=== PATIENT | female | born 1990 | race Caucasian/White ===

== ENCOUNTER → 2020-09-15 09:17 | Outpatient (BNVA) | payer SELFPAY | PROVIDERS: Visit Provider Family Medicine | DX: Z13.6 Encounter for screening for cardiovascular disorders (principal) | CPT/HCPCS: 80061; 82947; 83036 ==

== ENCOUNTER → 2020-10-03 13:33 | Outpatient (BNVA) | payer OTHER, SELFPAY | PROVIDERS: Visit Provider Obstetrics & Gynecology Reproductive Endocrinology | DX: Z01.83 Encounter for blood typing (principal); Z13.21 Encounter for screening for nutritional disorder; N92.6 Irregular menstruation, unspecified; Z11.9 Encounter for screening for infectious and parasitic diseases, unspecified | CPT/HCPCS: 84146; 84439; 84443; 85025; 86592; 86704; 86900; 87340; 87806 ==

== ENCOUNTER → 2021-02-19 13:17 | Outpatient (BNVA) | payer OTHER, SELFPAY | PROVIDERS: Visit Provider Family Medicine | DX: Z20.822 Contact with and (suspected) exposure to COVID-19 (principal) | CPT/HCPCS: 87635 ==

== ENCOUNTER → 2021-02-27 10:42 | Outpatient (BNVA) | payer OTHER, SELFPAY | PROVIDERS: Visit Provider Obstetrics & Gynecology Reproductive Endocrinology | DX: N97.9 Female infertility, unspecified (principal); Z13.29 Encounter for screening for other suspected endocrine disorder | CPT/HCPCS: 82306; 84146; 84439; 84443; 85025 ==

== ENCOUNTER 2021-03-14 09:12 | Outpatient (CLI) | payer OTHER, SELFPAY ==
--- NOTE | 2021-03-14 09:31 | US_ITS ---
WS: [id number] ULTRASOUND PELVIS TECHNIQUE: Transvaginal. CLINICAL INFORMATION: THERAPEUTIC DRUG LEVEL : No. COMPARISON: None. FINDINGS: Cervix long and closed. Uterus Orientation: Anteverted. Size: 5.51 x 3.05 x 4.31 cm Masses: None. Cervix: Normal. Endometrium: Normal. Endometrium thickness: 0.32 cm. Adnexa: Large lobulated left ovarian cyst measuring 5.4 x 2.4 x 3.1 cm with single septation Right ovary size: 3.39 x 1.79 x 3.42 cm. RIGHT OVARY 6 FOLLICLES VISUALIZED AND MEASURED FOLLICLE 1 0.46 x 0.39 x 0.39 cm; VOL 0.0 cm3 FOLLICLE 2 0.80 x 0.68 x 0.68 cm; VOL 0.2 cm3 FOLLICLE 3 0.38 x 0.38 x 0.23 cm; VOL 0.0 cm3 FOLLICLE 4 0.26 x 0.42 x 0.28 cm; VOL 0.0 cm3 FOLLICLE 5 0.33 x 0.25 x 0.38 cm; VOL 0.0 cm3 FOLLICLE 6 0.45 x 0.28 x 0.42 cm; VOL 0.0 cm3 Left ovary size: 2.66 x 2.85 x 2.21 cm. LEFT OVARY 8 FOLLICLES VISUALIZED AND MEASURED. FOLLICLE 1 0.50 x 0.47 x 0.37 cm VOL 0.0 cm3 FOLLICLE 2 0.29 x 0.29 x 0.23 cm VOL 0.0 cm3 FOLLICLE 3 0.30 x 0.35 x 0.26 cm VOL 0.0 cm3 FOLLICLE 4 0.21 x 0.22 x 0.17 cm VOL 0.0 cm3 FOLLICLE 5 0.50 x 0.35 x 0.55 cm VOL 0.1 cm3 FOLLICLE 6 0.53 x 0.53 x 0.38 cm VOL 0.1 cm3 FOLLICLE 7 0.48 x 0.48 x 0.61 cm VOL 0.1 cm3 FOLLICLE 8 0.48 x 0.48 x 0.31 cm VOL 0.0 cm3 Free fluid: None. Other findings: None. US/US transvaginal [id number] IMPRESSION: 1. Normal uterus and endometrium. Endometrium measures 3.2 mm. 2. Large lobulated left ovarian cyst measuring 5.4 x 2.4 x 3.1 cm 3. Largest right ovarian follicle measures 8.0 x 6.8 x 6.8 mm 4. Largest left ovarian follicle measures 5.3 x 5.3 x 3.8 mm
[2021-03-14 11:01] LABS: Estradiol 6.7 pg/mL
== END 2021-03-14 09:13 | disposition home or self-care (01) ==
PROVIDERS: PCP Nurse Practitioner Family; Visit Provider Obstetrics & Gynecology Reproductive Endocrinology
DX: Z51.81 Encounter for therapeutic drug level monitoring (principal); N83.202 Unspecified ovarian cyst, left side; N83.01 Follicular cyst of right ovary; N83.02 Follicular cyst of left ovary
CPT/HCPCS: 36415; 76830; 82670; 84144; 84702

== ENCOUNTER 2021-03-29 07:16 | Outpatient (CLI) | payer OTHER, SELFPAY ==
[2021-03-29 08:19] LABS: Estradiol 617.5 pg/mL
== END 2021-03-29 07:17 | disposition home or self-care (01) ==
LOC: LAB 07:24
PROVIDERS: PCP Nurse Practitioner Family; Visit Provider Obstetrics & Gynecology Reproductive Endocrinology
DX: Z51.81 Encounter for therapeutic drug level monitoring (principal); N92.6 Irregular menstruation, unspecified; E34.9 Endocrine disorder, unspecified
CPT/HCPCS: 36415; 82670; 84144; 84702

== ENCOUNTER → 2021-04-10 08:15 | Outpatient (BNVA) | payer OTHER, SELFPAY | PROVIDERS: PCP Nurse Practitioner Family; Visit Provider Nurse Practitioner Family | DX: Z13.9 Encounter for screening, unspecified (principal) ==

== ENCOUNTER 2021-04-11 07:42 | Outpatient (CLI) | payer OTHER, SELFPAY ==
[2021-04-11 08:23] LABS: HCG Quantitative 97.38 mIU/mL
== END 2021-04-11 07:43 | disposition home or self-care (01) ==
LOC: LAB 07:48
PROVIDERS: PCP Nurse Practitioner Family; Visit Provider Obstetrics & Gynecology Reproductive Endocrinology
DX: N91.2 Amenorrhea, unspecified (principal)
CPT/HCPCS: 36415; 84702

== ENCOUNTER 2021-04-13 07:37 | Outpatient (CLI) | payer OTHER, SELFPAY | END 2021-04-13 07:38 | disposition home or self-care (01) | LOC: LAB 07:41 | PROVIDERS: PCP Nurse Practitioner Family; Visit Provider Obstetrics & Gynecology Reproductive Endocrinology | DX: N91.2 Amenorrhea, unspecified (principal) | CPT/HCPCS: 36415; 84702 ==

== ENCOUNTER 2021-05-22 10:53 | Outpatient (CLI) | payer OTHER, SELFPAY ==
--- NOTE | 2021-05-22 11:03 | US_ITS ---
WS: [id number] ULTRASOUND OB LIMITED TECHNIQUE: Limited ultrasound examination of the fetus. CLINICAL INFORMATION: BLEEDING COMPARISON: None. FINDINGS: Cervix is long and closed measuring 3.5 cm. Single interuterine gestation with gestational sac and yolk sac. Small subchorionic hemorrhage. Nerissa l cardiac activity. heart rate 171 BPM. Small subchorionic hemorrhage measuring 3.1 x 2.4 x 2.2 cm. Simple cyst left ovary measuring 2.0 x 1.5 x 1.8 cm. Normal right ovary. EGA by ultrasound: 10w0d ZENOBIA by ultrasound: 12/18/2021 US/US OB <= 14 weeks fetus [id number] IMPRESSION: 1. Single intrauterine gestation with cardiac activity. pole with yolk s ac and gestational sac. 2. Small subchorionic hemorrhage. Recommend short interval follow-up. 3. EGA by ultrasound: 10w0d. ZENOBIA by ultrasound: 12/18/2021 4. Ovaries are normal in appearance. Incidental cyst left ovary. 5. Cervix is long and closed measuring 3.5 cm. 6. No free fluid in the cul-de-sac.
== END 2021-05-22 10:54 | disposition home or self-care (01) ==
LOC: RAD 10:55
PROVIDERS: PCP Nurse Practitioner Family; Visit Provider Obstetrics & Gynecology Reproductive Endocrinology
DX: O20.0 Threatened abortion (principal); O72.1 Other immediate postpartum hemorrhage; Z3A.10 10 weeks gestation of pregnancy
CPT/HCPCS: 76801

== ENCOUNTER → 2021-06-18 13:08 | Outpatient (BNVA) | payer OTHER, SELFPAY | PROVIDERS: PCP Nurse Practitioner Family; Visit Provider Nurse Practitioner Family | DX: N39.0 Urinary tract infection, site not specified (principal) | CPT/HCPCS: 81003; 86769; 87086 ==

== ENCOUNTER → 2021-08-10 00:01 | Outpatient (BNVA) | payer OTHER, SELFPAY | PROVIDERS: PCP Nurse Practitioner Family; Visit Provider Nurse Practitioner Family | DX: Z20.822 Contact with and (suspected) exposure to COVID-19 (principal) | CPT/HCPCS: 87635 ==

== ENCOUNTER → 2021-09-04 10:15 | Outpatient (BNVA) | payer OTHER, SELFPAY | PROVIDERS: PCP Nurse Practitioner Family; Visit Provider Nurse Practitioner Family | DX: Z20.822 Contact with and (suspected) exposure to COVID-19 (principal); E55.9 Vitamin D deficiency, unspecified; Z34.90 Encounter for supervision of normal pregnancy, unspecified, unspecified trimester | CPT/HCPCS: 80053; 82306; 83735; 86769 ==

== ENCOUNTER → 2021-11-19 09:21 | Outpatient (BNVA) | payer OTHER, SELFPAY | PROVIDERS: PCP Nurse Practitioner Family; Visit Provider Nurse Practitioner Family | DX: Z34.90 Encounter for supervision of normal pregnancy, unspecified, unspecified trimester (principal); Z20.822 Contact with and (suspected) exposure to COVID-19; D56.5 Hemoglobin E-beta thalassemia | CPT/HCPCS: 80053; 82607; 83036; 83735; 86769 ==

== ENCOUNTER → 2022-04-03 09:10 | Outpatient (BNVA) | payer OTHER, SELFPAY | PROVIDERS: PCP Nurse Practitioner Family; Visit Provider Nurse Practitioner Family | DX: E28.2 Polycystic ovarian syndrome (principal); R73.9 Hyperglycemia, unspecified; M25.50 Pain in unspecified joint; E53.8 Deficiency of other specified B group vitamins; E55.9 Vitamin D deficiency, unspecified; R53.83 Other fatigue | CPT/HCPCS: 80053; 80061; 82306; 82607; 83036; 84403; 84439; 84443; 84550; 85025; 85651; 86038; 86140; 86200; 86376; 86431; 86618; 86666; 86757 ==

== ENCOUNTER → 2022-04-05 15:14 | Outpatient (BNVA) | payer OTHER, SELFPAY | PROVIDERS: PCP Nurse Practitioner Family; Visit Provider Nurse Practitioner Family | DX: M25.50 Pain in unspecified joint (principal); R76.8 Other specified abnormal immunological findings in serum | CPT/HCPCS: 71046 ==

== ENCOUNTER → 2022-04-24 09:26 | Outpatient (BNVA) | payer OTHER, SELFPAY | PROVIDERS: PCP Nurse Practitioner Family; Visit Provider Family Medicine | DX: R76.8 Other specified abnormal immunological findings in serum (principal) | CPT/HCPCS: 86225 ==

== ENCOUNTER → 2022-05-01 12:34 | Outpatient (BNVA) | payer OTHER, SELFPAY | PROVIDERS: PCP Nurse Practitioner Family; Visit Provider Nurse Practitioner Family | DX: R76.8 Other specified abnormal immunological findings in serum (principal); M25.50 Pain in unspecified joint | CPT/HCPCS: 86160; 86162; 86235; 86255; 86376 ==

== ENCOUNTER → 2022-05-15 09:25 | Outpatient (BNVA) | payer OTHER, SELFPAY | PROVIDERS: PCP Nurse Practitioner Family; Visit Provider Nurse Practitioner Family | DX: Z20.828 Contact with and (suspected) exposure to other viral communicable diseases (principal) | CPT/HCPCS: 87400 ==

== ENCOUNTER → 2022-12-20 14:12 | Outpatient (BNVA) | payer OTHER, SELFPAY | PROVIDERS: PCP Nurse Practitioner Family; Visit Provider Nurse Practitioner Family | DX: M79.671 Pain in right foot (principal); M79.672 Pain in left foot | CPT/HCPCS: 73630 ==

== ENCOUNTER → 2023-04-01 10:04 | Outpatient (BNVA) | payer OTHER, SELFPAY | PROVIDERS: PCP Nurse Practitioner Family; Visit Provider Nurse Practitioner Family | DX: Z01.89 Encounter for other specified special examinations (principal) | CPT/HCPCS: 82607 ==

== ENCOUNTER → 2023-07-01 10:59 | Outpatient (BNVA) | payer SELFPAY | PROVIDERS: PCP Nurse Practitioner Family; Visit Provider Nurse Practitioner Family | DX: Z01.89 Encounter for other specified special examinations (principal) ==

== ENCOUNTER → 2023-07-10 08:15 | Outpatient (BNVA) | payer OTHER, SELFPAY | PROVIDERS: PCP Nurse Practitioner Family; Visit Provider Family Medicine | DX: M25.511 Pain in right shoulder (principal); R05.8 Other specified cough | CPT/HCPCS: 71046; 73030 ==

== ENCOUNTER → 2023-12-30 12:40 | Outpatient (BNVA) | payer SELFPAY | PROVIDERS: PCP Nurse Practitioner Family; Visit Provider Family Medicine | DX: Z01.89 Encounter for other specified special examinations (principal) ==

== ENCOUNTER → 2024-03-30 11:44 | Outpatient (BNVA) | payer SELFPAY | PROVIDERS: PCP Nurse Practitioner Family; Visit Provider Dermatology | DX: Z00.00 Encounter for general adult medical examination without abnormal findings (principal); R76.8 Other specified abnormal immunological findings in serum; E55.9 Vitamin D deficiency, unspecified; E28.2 Polycystic ovarian syndrome | CPT/HCPCS: 82306; 82607; 84403; 85651; 86038 ==

== ENCOUNTER → 2024-09-17 13:37 | Outpatient (BNVA) | payer OTHER, SELFPAY | PROVIDERS: Visit Provider Nurse Practitioner Family | DX: R30.0 Dysuria (principal) | CPT/HCPCS: 81003; 87077; 87086; 87184 ==

== ENCOUNTER → 2024-10-05 15:26 | Outpatient (BNVA) | payer OTHER, SELFPAY | PROVIDERS: PCP Nurse Practitioner Family; Visit Provider Nurse Practitioner Family | DX: R30.0 Dysuria (principal) | CPT/HCPCS: 81000; 87077; 87086; 87184 ==

== ENCOUNTER → 2025-02-02 09:15 | Outpatient (BNVA) | payer OTHER, SELFPAY | PROVIDERS: PCP Nurse Practitioner Family; Visit Provider Nurse Practitioner Family | DX: N39.0 Urinary tract infection, site not specified (principal) | CPT/HCPCS: 81000; 87086 ==

== ENCOUNTER 2025-06-30 14:29 | Outpatient (CLI) | payer OTHER, SELFPAY ==
--- NOTE | 2025-06-30 07:15 | MR_ITS ---
WS: [id number] MRI HEAD WITH CONTRAST TECHNIQUE: Sagittal T1, T2 axial, T2 axial FLAIR, axial susceptibility weighted imaging, axial diffusion weighted images, and coronal T2 images were obtained. Pre and post-T1 axial and post T1 coronal images. ADC and FSPGR images. CLINICAL INFORMATION: G43.909 - Migraine, unspecified, not intractable, without... COMPARISON: None. FINDINGS: No evidence of restricted diffusion to suggest acute ischemia. No suspicious intracranial signal abnormalities. Normal wyatt-white differentiation. No extra- axial fluid collections. Normal posterior fossa. Normal vascular flow voids at the skull base. Paranasal sinuses and mastoid air cells are well aerated. Normal posterior nasopharynx. No hemosiderin on the susceptibly weighted images. Normal optic chiasm and pituitary infundibulum. Temporal lobes and hippocampal formations are normal in appearance. No abnormal gadolinium enhancement. Normal dural venous sinuses. MR/MR head wo/w con [id number] IMPRESSION: 1. No evidence of restricted diffusion to suggest acute ischemia. 2. No suspicious intracranial signal abnormalities. 3. No hemosiderin on the susceptibility weighted images. 4. No abnormal gadolinium enhancement. 5. No other suspicious findings.
[2025-06-30] MEDS: gadobenate dimeglumine 20 mL vial 15 ML IV (15:31)
== END 2025-06-30 14:30 | disposition home or self-care (01) ==
PROVIDERS: PCP Nurse Practitioner Family; Visit Provider Nurse Practitioner Family
DX: G43.909 Migraine, unspecified, not intractable, without status migrainosus (principal)
CPT/HCPCS: 70553